=== PATIENT | male | born 2000 | race Caucasian/White ===

== ENCOUNTER 2025-04-07 16:07 | Emergency (ER) | payer OTHER, SELFPAY ==
[2025-04-07 16:08] VITALS: BP 132/75; PULSE 102; RESP 18; TEMP 37.3; O2SAT 99; BMI 28.3
--- NOTE | 2025-04-07 16:43 | ED.RN ---
PT STATES HIS SON WAS JUST SICK WITH THE SAME S/SX BEING WANG AND N/V. HE DID HAVE A TICK BITE A FEW WEEKS AGO AND IS NOT SURE IF IT COULD BE RELATED. THIS NURSE ADVISED THE PT TO MENTION THE TICK BITE TO THE DR WHEN THEY COME IN FOR THEIR ASSESSMENT.
--- NOTE | 2025-04-07 17:42 | EX.ED.VIS.HA ---
HPI History of Present Illness Chief Complaint: Headache Informant: patient Onset/Context/Timing Onset: Yesterday Context: Gradual Timing: Continuous Quality -Headache: Positive for Sharp Location: Left occipital area, left periorbital area Worsened by: Bright lights, loud noises Relieved by: Uzin-dep-lefhthe medications Associated Symptoms/Injury Associated Symptoms: Positive for Fever, Nausea, Vomiting, Sore Throat and Photophobia; Negative for Sinus Pressure, Numbness, Tingling, Preceding Aura, Visual Changes, Blurred Vision or Visual Loss Narrative Narrative: Patient presents with headache that has been getting worse since yesterday afternoon. Patient states it described getting worse. Patient states it is constant. Patient states that it is sharp. Patient states it is over the left occipital and left periorbital area. Patient states it is worse with bright lights and loud noises. Patient admits to some subjective fevers at home. Patient with the nausea and vomiting. Patient admits to a sore throat that began after his vomiting started. Patient denies any visual changes or scotoma. Patient has been using [id number] medications which has helped somewhat. PFSH PFS Medical History no medical history no medical history Home Medications ?Medication ?Instructions ?Recorded ?Last Taken ?Type NK 04/07/25 Unknown History Allergy/AdvReac Type Severity Reaction Status Date / Time No Known Allergies Allergy Verified 04/07/25 16:44 Surgical History (Updated 04/07/25 @ 17:[address] Artur Jenkins DO) Hx of tonsillectomy Social History Smoking Status: Never smoker ROS ROS ED Constitutional Constitutional ED: Reports fever(s) and subjective; Denies chills Eyes Eyes: Denies blurry vision or change in vision ENT ENT ED: Reports sore throat; Denies rhinorrhea Cardiovascular Cardiovascular: Denies chest pain or palpitations Respiratory/Chest Respiratory/Chest: Denies cough or dyspnea Gastrointestinal Gastrointestinal: Reports nausea and vomiting Genitourinary Genitourinary ED: Denies dysuria or hematuria Musculoskeletal Musculoskeletal: Reports back pain and neck pain Integumentary Denies abscess or rash Neurologic Neurologic: Reports headache(s); Denies weakness Allergic/Immunologic Allergic/Immunologic ED: Denies mouth swelling or urticaria EXAM Physical Exam Const Vital Signs: 04/07/25 16:08 04/07/25 16:42 04/07/25 18:26 Temperature 99.1 F Temperature Source Oral Pulse Rate 102 H 89 Respiratory Rate 18 16 Respiratory Effort Normal Blood Pressure 132/75 H 125/87 H Blood Pressure Mean 94 99 Pulse Ox 99 96 Oxygen Delivery Method Room Air Room Air Positive well nourished and well developed General Appearance ED: well developed and NAD HEENT Reports normocephalic and moist mucous membranes atraumatic Neck supple Resp normal respiratory effort and clear to auscultation bilaterally Cardio regular rate and regular rhythm GI non-distended GI Narrative: There is mild upper abdominal tenderness. There is no rebound or guarding noted. Palpation: soft and tender epigastric, LUQ, RUQ and periumbilical; Negative for guarding Extremity full ROM and normal capillary refill Neuro oriented x3, CN's II-XII intact bilaterally and no sensory deficits noted Hayley Coma Scale: document GCS findings Spontaneous Obeys Commands Oriented 15 Sensorium / Orientation: awake and alert Speech: speech normal Motor Exam: strength 5/5 throughout Psych mental status grossly normal MDM MDM MDM Narrative Medical decision making narrative: Differential diagnosis includes migraine headache, tension headache, electrolyte abnormality, dehydration, and intracranial bleeding. CT scan of the brain will be obtained to assess for intracranial bleeding. CBC will be obtained to assess for leukocytosis and anemia. Basic metabolic profile will be obtained to assess for electrolyte abnormality and renal function. Lab Data Attestation: I reviewed the patient's lab results. Lab results narrative: CBC was reviewed and was within normal limits. Basic metabolic profile was reviewed and was within normal limits. Labs: Laboratory Results - last 24 hr 04/07/25 17:55 WBC 10.3 RBC 5.02 Hgb 13.8 Hct 40.2 MCV 80.1 MCH 27.5 MCHC 34.3 RDW Std Deviation 39.1 RDW Coeff of [place] 13.6 Plt Count 264 MPV 10.5 Immature Gran % (Auto) 0.400 Neut % (Auto) 82.8 H Lymph % (Auto) 10.2 L [place] % (Auto) 5.8 Eos % (Auto) 0.1 Baso % (Auto) 0.7 Absolute Neuts (auto) 8.6 H Absolute Lymphs (auto) 1.05 Nucleated RBC % 0.4 Sodium 141 Potassium 3.6 Chloride 103 Carbon Dioxide 24.7 Anion Gap 13 BUN 10 Creatinine 0.89 Estim Creat Clear Calc 157.21 Est GFR (MDRD) Non-Af 123 BUN/Creatinine Ratio 11.2 Glucose 93 Calcium 9.5 Radiography Diagnostic Testing: Clinical Impression(s) from Imaging Studies Brain CT 04/07/25 18:09 IMPRESSION: No acute intracranial abnormality. Reading Location: [facility] CT scan of the brain was obtained. There is no acute intracranial abnormality. This was interpreted by the radiologist and was also independently reviewed by myself. Treatment and Re-Evaluation Narrative: Patient was given IV fluids, Reglan, and Benadryl. Patient had minimal relief with this. Patient was given a dose of Imitrex and Toradol. Patient is feeling better after this. Patient was instructed to rest in a dark quiet room. Patient was instructed to follow-up with his primary care physician in 5 to 7 days. Patient was instructed to return if worse in any way. Patient understood and was agreeable with the plan. All questions were answered. Discharge Plan Triage Chief Complaint: Headache Other Complaint: Fever ED Provider: Artur Jenkins Dx/Rx/DC Orders Clinical Impression: Headache, Elevated blood pressure reading, Nicotine vapor product user Instructions: ED Headache Unspecified Prescriptions: No Action NK Primary Care Provider: Sunday Liriano Referrals: Sunday Liriano MD [Primary Care Provider] - 3-5 Days Print Language: [place] Disposition Disposition: Home, Self Care
[2025-04-07] MEDS: DiphenhydrAMINE 50 MG/ML Syringe 25 MG IV (18:00)
[2025-04-07] MEDS: 0.9% Normal Saline (1000mL) 1,000 ML 999 ML IV (18:01)
[2025-04-07 18:04] LABS: Hematocrit 40.2 % (40-54); Hemoglobin 13.8 g/dL (13.0-16.5); Immature Granulocytes Count 0.040 X10^3/uL (0.0-0.0); Mean Corp Hgb Conc 34.3 g/dL (32-36); Mean Corpuscular Volume 80.1 fL (80-94); Mean Platelet Vol. 10.5 fl (6.2-12.0); NRBC Flagged by Analyzer 0.4 % (0-5); Platelet Count 264 K/mm3 (150-450); RBC Distribution Width CV 13.6 % (11.6-14.6); RBC Distribution Width SD 39.1 fl (35.1-43.9); Red Blood Count 5.02 M/mm3 (4.6-6.2); White Blood Count 10.3 K/mm3 (4.4-11.0)
--- NOTE | 2025-04-07 18:09 | CT_ITS ---
PROCEDURE: BRAIN/HEAD WITHOUT CONTRAST 04/07/2025 REASON FOR EXAM: PAIN TECHNIQUE: BRAIN/HEAD WITHOUT CONTRAST Coronal and Sagittal reconstruction series were provided. One or more dose reduction techniques were used (e.g., Automated exposure control, adjustment of the mA and/or kV according to patient size, use of iterative reconstruction technique. RADIATION DOSE SUMMARY: CTDlvol: 44.99 mGy DLP: 846.73 mGycm COMPARISON: None. FINDINGS: No acute intracranial hemorrhage, extra-axial collection, mass effect or evidence of acute infarct. Ventricles and subarachnoid spaces are normal in size. Orbital contents are unremarkable. Intact skull base and calvarium. Small bilateral maxillary mucous retention cysts/polyps. CT/Brain/Head without Contrast IMPRESSION: No acute intracranial abnormality. Reading Location: [id number]
[2025-04-07 18:26] VITALS: BP 125/87; PULSE 89; RESP 16; O2SAT 96
[2025-04-07 18:38] LABS: Anion Gap 13 (5-15); BUN 10 mg/dL (4-19); BUN/Creat Ratio 11.2 RATIO (10-20); Calcium,Total 9.5 mg/dL (7.6-11.0); Carbon Dioxide 24.7 mmol/L (21.0-32.0); Chloride 103 mmol/L (98-108); Estimated Creatinine Clearance 157.21 ml/min (50-250); Glucose 93 mg/dL (70-99); Potassium 3.6 mmol/L (3.3-5.1)
[2025-04-07 20:38] VITALS: BP 123/78; PULSE 88; RESP 16; TEMP 36.6; O2SAT 98
== END 2025-04-07 20:46 | disposition home or self-care (01) ==
PROVIDERS: Emergency Provider Emergency Medicine; PCP Family Medicine; Visit Provider Emergency Medicine
DX: R51.9 Headache, unspecified (principal); F17.290 Nicotine dependence, other tobacco product, uncomplicated
CPT/HCPCS: 70450; 80048; 85025; 96361; 96372; 96374; 96375; 99284; A4216; J2405; J3030